=== PATIENT | female | born 1955 | race Caucasian/White ===

== ENCOUNTER → 2019-09-24 10:01 | Outpatient (CLI) | payer BC, SELFPAY ==
[2019-09-24 12:50] LABS: Ferritin 6 ng/mL (8-252); Iron 40 ug/dL (50-170)
[2019-09-25 16:08] LABS: Endomysial Antibody IgA Negative (Negative)
[2019-09-26 16:25] LABS: Immunoglobulin A 286 mg/dL (87-352); t-Transglutaminase IgA <2 U/mL (0-3)
== END ==
PROVIDERS: Family Provider Nurse Practitioner Family; PCP Nurse Practitioner Family; Referring Provider Internal Medicine Gastroenterology; Visit Provider Internal Medicine Gastroenterology
DX: D50.9 Iron deficiency anemia, unspecified (principal)
CPT/HCPCS: 36415; 82728; 82784; 83516; 83540; 86255

== ENCOUNTER 2024-03-13 17:30 | Outpatient (RCR) | payer SELFPAY | END 2024-03-18 23:59 | LOC: NS 17:30 | PROVIDERS: PCP Nurse Practitioner Family | DX: Z71.3 Dietary counseling and surveillance (principal) ==